=== PATIENT | male | born 1940 | race African-American/Black ===

== ENCOUNTER 2018-08-05 11:39 | Inpatient (IN) | payer MEDICAID ==
[~2018-08-05] VITALS: Ht 172.7 cm; Wt 84.4 kg
[2018-08-05 14:40] LABS: BASOPHILS % 0.7 % (0.0-2.0); EOSINOPHILS % 1.3 % (0.0-5.0); HEMATOCRIT. 35.7 % (42.0-52.0); HEMOGLOBIN. 11.9 g/dL (14.0-18.0); LYMPHOCYTES % 22.9 % (20.0-50.0); MEAN CORPUSCULAR HEMOGLOBIN 26.6 pg (28.0-32.0); MEAN CORPUSCULAR VOLUME 80.2 fL (80.0-94.0); MONOCYTES % 9.5 % (2.0-8.0); NEUTROPHILS % 65.6 % (40.0-76.0); PLATELET 208 x1000/uL (130-400); RED BLOOD CELL COUNT 4.46 mill/uL (4.7-6.1); RED CELL DISTRIBUTION WIDTH 15.6 % (11.6-14.6)
[2018-08-05] MEDS ORDERED: SODIUM CHLORIDE 0.9% 500 ML IV ONE (14:48)
[2018-08-05 14:49] LABS: CHLORIDE 100 mEq/L (98-107)
[2018-08-05 14:57] LABS: PARTIAL THROMBOPLASTIN TIME 25.7 sec (23.4-31.0); PROTHROMBIN TIME 10.3 sec (9.1-11.1)
[2018-08-05] MEDS ORDERED: MAGNESIUM 1 G PREMIX 100 ML IV ONE (17:00)
[2018-08-05 17:28] LABS: *AMPHETAMINES SCREEN URINE PRESUMTIVE POSITIVE (NEGATIVE); *BARBITURATES SCREEN URINE NEGATIVE (NEGATIVE); *BENZODIAZEPINES SCREEN URINE NEGATIVE (NEGATIVE); *COCAINE SCREEN URINE NEGATIVE (NEGATIVE)
[2018-08-05 17:29] LABS: CANNABINOID URINE SCREEN NEGATIVE (NEGATIVE); METHADONE URINE SCREEN NEGATIVE (NEGATIVE); OPIATES URINE SCREEN NEGATIVE (NEGATIVE); PHENCYCLIDINE URINE SCREEN NEGATIVE (NEGATIVE)
[2018-08-05 22:57] VITALS: BP 138/82
[2018-08-06] VITALS (8 sets, daily range): BP systolic 114–128; BP diastolic 62–74
[2018-08-06] MEDS ORDERED: DEXTROSE 50% WATER 50ML SYRINGE IV PRN (00:30)
[2018-08-06] MEDS: BLOOD SUGAR DIAGNOSTIC STRIP TEST SCH ×4 (06:25→20:20)
[2018-08-06] MEDS ORDERED: LORAZEPAM 2MG/ML CPJ IV PRN (06:45)
[2018-08-06] MEDS ORDERED: ACETAMINOPHEN 325MG TABLET PO PRN (06:45)
[2018-08-06] MEDS ORDERED: ONDANSETRON HCL 4MG/2ML INJ IV PRN (06:45)
[2018-08-06] MEDS ORDERED: ENOXAPARIN 40MG/0.4ML SYR SUBCUT SCH (06:45)
[2018-08-06] MEDS: INSULIN LISPRO 100 UNITS/ML SUBCUT SCH ×4 (07:40→20:20)
[2018-08-06 08:14] LABS: BASOPHILS % 0.5 % (0.0-2.0); EOSINOPHILS % 3.9 % (0.0-5.0); HEMATOCRIT. 37.1 % (42.0-52.0); HEMOGLOBIN. 12.2 g/dL (14.0-18.0); LYMPHOCYTES % 29.8 % (20.0-50.0); MEAN CORPUSCULAR HEMOGLOBIN 26.5 pg (28.0-32.0); MEAN CORPUSCULAR VOLUME 80.6 fL (80.0-94.0); MEAN PLATELET VOLUME 7.1 fl (7.4-10.4); MONOCYTES % 10.1 % (2.0-8.0); NEUTROPHILS % 55.7 % (40.0-76.0); PLATELET 199 x1000/uL (130-400); RED CELL DISTRIBUTION WIDTH 15.9 % (11.6-14.6)
[2018-08-06 08:32] LABS: CHLORIDE 104 mEq/L (98-107)
[2018-08-06 08:44] LABS: CREATINE KINASE 468 IU/L (39-308); CREATINE KINASE MB FRACTION 5.3 ng/mL (0.5-3.6)
[2018-08-06] MEDS ORDERED: ENOXAPARIN 30MG/0.3ML SYR SUBCUT SCH (09:00)
[2018-08-06] MEDS: CEFTRIAXONE 1 G PREMIX 50 ML IV SCH (10:03)
[2018-08-07] VITALS: BP 127/73
[2018-08-07 08:00] VITALS: BP 125/59
[2018-08-07] MEDS: INSULIN LISPRO 100 UNITS/ML SUBCUT SCH (08:10)
[2018-08-07] MEDS: BLOOD SUGAR DIAGNOSTIC STRIP TEST SCH (08:21)
[2018-08-07] MEDS ORDERED: ENOXAPARIN 40MG/0.4ML SYR SUBCUT SCH (09:00)
[2018-08-07] MEDS: CEFTRIAXONE 1 G PREMIX 50 ML IV SCH (09:13)
== END 2018-08-07 10:00 | disposition left against medical advice (07) | DRG 812 ==
LOC: ER 12:17 → EDBEDREQ 17:01 → EDBEDREQTM 17:01 → ENRESERV 21:23 → 7WST 22:35
PROVIDERS: ADMIT Internal Medicine Nephrology; ATTEND Internal Medicine Nephrology
DX: T43.621A Poisoning by amphetamines, accidental (unintentional), initial encounter (principal); G92 Toxic encephalopathy; M62.82 Rhabdomyolysis; E11.9 Type 2 diabetes mellitus without complications; S06.5X9A Traumatic subdural hemorrhage with loss of consciousness of unspecified duration, initial encounter; E78.00 Pure hypercholesterolemia, unspecified; W18.39XA Other fall on same level, initial encounter; I10 Essential (primary) hypertension; W19.XXXA Unspecified fall, initial encounter; T43.641A Poisoning by ecstasy, accidental (unintentional), initial encounter; Y92.89 Other specified places as the place of occurrence of the external cause; Z86.73 Personal history of transient ischemic attack (TIA), and cerebral infarction without residual deficits; Y93.89 Activity, other specified; Y99.8 Other external cause status
CPT/HCPCS: 36415; 36430; 70551; 71045; 72170; 80048; 80305; 82550; 82553; 82962; 83735; 83880; 84484; 86850; 86900; 93005; 96361; 96365; 96366; 97162; 99285; G0482; J0696; J1650; J1815; J3475; J7040; J7050